=== PATIENT | male | born 1960 | race Caucasian/White ===

== ENCOUNTER 2016-07-23 10:34 | Day surgery (SDC) | payer BC ==
--- NOTE | 2016-07-17 16:14 | DIAGNOSTIC IMAGING REPORT ---
CHEST 2 VIEWS ROUTINE CLINICAL HISTORY: PRE-OP M51.26 preoperative evaluation COMPARISON STUDY: No previous studies for comparison. FINDINGS: The bones soft tissues and hemidiaphragms are normal. The cardiomediastinal silhouette is normal. The lungs are clear. The pulmonary vasculature is normal. IMPRESSION: Negative chest. Electronically signed by: Darek Jarquin M.D. 07/17/2016 4:12 PM Dictated Date/Time: 07/17/2016 4:12 PM
[2016-07-17 16:41] LABS: BASO % 0.2 %; BASO ABS # 0.02 K/uL (0-0.2); COMPLETE YES; EOS % 3.3 %; HEMATOCRIT 44.7 % (42-52); IG% 0.4 %; LYMPH % 26.1 %; LYMPH ABS # 2.55 K/uL (1.2-3.4); MEAN CELL VOLUME 88.5 fL (80-100); MEAN CORPUSCULAR HEMOGLOBIN 30.5 pg (25-34); MEAN CORPUSCULAR HGB CONC 34.5 g/dl (32-36); MEAN PLATELET VOLUME 10.1 fL (7.4-10.4); MONO % 10.5 %; NEUT % 59.5 %; PLATELET COUNT 296 K/uL (130-400); RED BLOOD COUNT 5.05 M/uL (4.7-6.1); WHITE BLOOD COUNT 9.78 K/uL (4.8-10.8)
[2016-07-17 16:46] LABS: URINE APPEARANCE CLEAR (CLEAR); URINE BILIRUBIN NEG (NEG); URINE COLOR YELLOW; URINE NITRITE NEG (NEG); URINE PH 6.5 (4.5-7.5); URINE SPECIFIC GRAVITY 1.019 (1.000-1.030); UROBILINOGEN NEG (NEG)
[2016-07-17 16:48] LABS: MANUAL MICROSCOPIC REQUIRED? NO; REVIEW REQ? NO
[2016-07-17 17:00] LABS: BLOOD UREA NITROGEN 19 mg/dl (7-18); BUN/CREATININE RATIO 20.7 (10-20); CALCIUM 9.5 mg/dl (8.5-10.1); CARBON DIOXIDE 26 mmol/L (21-32); CHLORIDE 103 mmol/L (98-107); GLUCOSE 82 mg/dl (70-99); SODIUM 140 mmol/L (136-145)
[2016-07-18 16:25] VITALS: BMI 28.0
--- NOTE | 2016-07-19 14:33 | HISTORY & PHYSICAL EXAMINATION ---
DATE OF ADMISSION: 07/23/2016 HISTORY OF PRESENT ILLNESS: The patient presents to our office with a complaint of right leg pain along the buttock, posterior thigh extending to his ankle. He reports his foot is numb. Reports these symptoms are constant. He has had multiple emergency room visits because of the above-mentioned complaints. He denies bowel or bladder dysfunction. He is taking oxycodone for pain control. He has trialed a recent pain management injection with Dr. Meade. Unfortunately, he reports very little lasting relief from this. PAST MEDICAL HISTORY: The patient's medical history is significant for none. PAST SURGICAL HISTORY: Significant for right shoulder surgery, left ring finger surgery and surgery for pyloric stenosis as an infant. ALLERGIES: None listed. MEDICATIONS: Oxycodone for pain. 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 He is . He smokes half a pack of cigarettes x30 years. Alcohol denies. FAMILY HISTORY: Significant for cardiovascular disease, diabetes and hypertension. REVIEW OF SYSTEMS: Significant for constipation, back and leg pain. PHYSICAL EXAMINATION: VITAL SIGNS: 5 foot 11, 205 pounds. HEAD, EYES, EARS, NOSE, AND THROAT: Speech appropriate. CARDIOPULMONARY: No gross abnormalities. ABDOMEN: Soft, nondistended. GENITOURINARY: Deferred. NEUROLOGIC: Cranial nerves II-XII grossly intact. MUSCULOSKELETAL: He maintains standing throughout the room. He is obviously uncomfortable. Strength is intact bilateral lower extremities. ASSESSMENT: Herniated nucleus pulposus L5-S1. PLAN: At this point in time, he has tried and failed conservative therapy. He may consider surgical intervention. We have discussed 2 options, the first being laminectomy L5-S1 on the right versus the second option lumbar decompression with instrumented fusion L5-S1. Risks, benefits, pros, cons, and alternatives were outlined in detail for both. The patient at this point in time has elected to proceed with a smaller surgery in the form of a lumbar laminectomy L5-S1 on the right. We will try and facilitate this as soon as possible.
[~2016-07-23] VITALS: Ht 180.3 cm; Wt 93.2 kg
--- NOTE | 2016-07-23 07:27 | History & Physical Bridge Note ---
H&P Re-Evaluation Bridge Note: I have examined the patient, reviewed the History & Physical and in the interval since the performance of the History & Physical I have noted the following changes of clinical significance: No changes noted
[~2016-07-23 10:34] MED LIST: ASPI81TA28 PO; CEFAZOLIN 2000 MG/60 ML D5W IV SCH; LACTATED RINGER'S 1000ML 1,000 ML IV SCH; OMEG10007 PO; OXYC1TAB3 PO
[2016-07-23 10:54] VITALS: BP 134/91; PULSE 54; TEMP 36.7; O2SAT 98; Ht 180.3 cm; Wt 93.2 kg
[2016-07-23] MEDS ORDERED: LACTATED RINGER'S 1000ML 1,000 ML IV PRN (11:50)
[2016-07-23] MEDS ORDERED: ONDANSETRON INJ 2 MG/ML 2 ML VIAL IV PRN (12:00)
[2016-07-23] MEDS ORDERED: FENTANYL CITRATE INJ 50 MCG/1 ML 2 ML VIAL IV PRN (12:00)
[2016-07-23] MEDS ORDERED: HYDROmorphone INJ 1 MG/ML SYR IV PRN ×2 (12:00→14:45)
[2016-07-23] MEDS ORDERED: MIDAZOLAM HCL 1 MG/ML 2ML VIAL ONE (13:03)
[2016-07-23] MEDS ORDERED: FENTANYL CITRATE INJ 50 MCG/1 ML 2 ML VIAL ONE ×2 (13:03→14:06)
[2016-07-23] MEDS ORDERED: BUPIVACAINE/EPINEPHRINE 0.5% MPF 1:200,000 30 ML VIAL ONE (13:28)
[2016-07-23] MEDS ORDERED: BACITRACIN 50000 UNIT VIAL ONE (13:28)
[2016-07-23] MEDS ORDERED: SODIUM CHLORIDE 0.9% PF 50 ML VIAL ONE (13:28)
[2016-07-23] MEDS ORDERED: HYDROmorphone INJ 2 MG/ML SYR/VIAL ONE (14:06)
[2016-07-23] MEDS ORDERED: LIDOCAINE HCL 2% 2 ML VIAL (20MG/ML) ONE (14:23)
[2016-07-23] MEDS ORDERED: DEXAMETHASONE SOD INJ 4 MG/ML VIAL ONE (14:23)
[2016-07-23] MEDS ORDERED: GLYCOPYRROLATE INJ 0.2 MG/ML VIAL ONE (14:23)
[2016-07-23] MEDS ORDERED: KETOROLAC TROMETHAMINE 30 MG/ML VIAL ONE ×2 (14:23→14:39)
[2016-07-23] MEDS ORDERED: NEOSTIGMINE METHYLSULFATE 1 MG/ML 10ML VIAL ONE (14:23)
[2016-07-23] MEDS ORDERED: PROPOFOL IV EMULSION 10 MG/ML 20 ML VIAL IV ONE (14:23)
[2016-07-23] MEDS ORDERED: ROCURONIUM BROMIDE 10 MG/ML 5 ML VIAL ONE (14:23)
[2016-07-23] MEDS ORDERED: EpHEDrine SULFATE 50MG/5ML SYR ONE (14:23)
[2016-07-23] MEDS ORDERED: ONDANSETRON INJ 2 MG/ML 2 ML VIAL ONE (14:23)
[2016-07-23] MEDS ORDERED: FLOSEAL HEMOSTATIC MATRIX 5ML TOP ONE (14:39)
--- NOTE | 2016-07-23 14:44 | [facility] Post Operative Brief Note ---
Immediate Operative Summary Operative Date Jul 23, 2016. Pre-Operative Diagnosis Herniated nucleus pulposus L5-S1 Post-Operative Diagnosis Herniated nucleus pulposus L5-S1 Procedure(s) Performed L5-S1 Microdiscetomy Surgeon Dr. Mireles Glue Bone Crusher Surgeon(s) Kristen Montenegro PA-C Estimated Blood Loss 20 mL Findings hnp Specimens None per Surgeon
[2016-07-23] MEDS ORDERED: OXYCODONE/ACETAMINOPHEN 5-325 TAB PO PRN (14:45)
[2016-07-23] MEDS ORDERED: ACETAMINOPHEN 325 MG TAB PO PRN (14:45)
[2016-07-23] MEDS ORDERED: OXYC1TAB3 PO (14:45)
--- NOTE | 2016-07-23 14:46 | Discharge Instructions ---
Discharge Instructions Date of Service Jul 23, 2016. Admission Reason for Admission: Lumbar Herniated Nucleus Pulposus;Pre-Op M51.26 Discharge Discharge Diagnosis / Problem: hnp Discharge Goals Goal(s): Improve function Activity Recommendations Activity Limitations: per Instructions/Follow-up section . Instructions / Follow-Up Instructions / Follow-Up ACTIVITY RECOMMENDATIONS: SELF CARE INSTRUCTIONS AFTER A LAMINECTOMY 1. No prolonged sitting (less than 30 minutes for the first 3 weeks after surgery). 2. No bending, lifting more than 5 pounds, or twisting (roll like a log when turning in bed). 3. You may shower 3 days after surgery if no drainage from wound. Thoroughly dry wound. Do not soak in the tub. 4. Please walk as much as you can for exercise. Gradually increase the distance that you walk as your endurance increases. 5. You may drive in 7-10 days if you are comfortable and no longer requiring pain medications. SPECIAL CARE INSTRUCTIONS: VERY IMPORTANT TO READ AND REVIEW A. Your surgical incision has been closed with a cosmetic suture under the skin that will dissolve in about 6 weeks. In 14 days, you can use a pair of clean scissors and cut the suture that is left outside of the skin at the ends of your incision. B. Complications are uncommon, but please contact us if you have any signs or symptoms of: 1. wound infection (fever higher than 102.5 degrees F, redness, separation of wound, drainage, or increasing pain from the incision) 2. blood clots in legs (pain, swelling, redness and warmth in legs) 3. urinary tract infection (fever higher than 102.5 degrees, burning upon urination or increased frequency of urination) 4. nerve problems (inability to walk on your toes or heels, numbness, loss of bowel or bladder control) 5. any other symptoms that concern you. C. Please call the office at if you have any concerns or questions about your operation or recovery. MANAGING PAIN AFTER SPINAL SURGERY 1. Narcotic medication is intended for short-term use and will be provided for surgical pain. Surgical pain usually lasts for a period of 4-6 weeks. Narcotic medication includes Percocet, Vicodin, Darvocet, Tylenol #3 or Lortab. 2. Longer-term pain is more appropriately treated with non-narcotic medication such as Tylenol ES. 3. Muscle spasm is not appropriately treated with narcotics. Muscle relaxers such as Soma, Flexeril or Skelaxin can be used along with Tylenol ES. 4. Remember that we all live with some "aches and pains". This is not unusual or uncommon after an injury or as we get older. 5. We will provide appropriate medication within the normal guidelines of their prescribed use. We will also be very cautious and aware of potential abuse and extended duration of patients' medication needs. 6. Please allow 2-3 days to process refills. Prescriptions will not be mailed but must be picked up at the office. FOLLOW UP VISIT: Keep your scheduled follow-up appointment. Any questions, please call the office at . Current Hospital Diet Patient's current hospital diet: Discharge Diet Recommended Diet: Regular Diet Procedures Procedures Performed: L5-S1 Microdiscetomy Pending Studies Studies pending at discharge: no Medical Emergencies . Who to Call and When: Medical Emergencies: If at any time you feel your situation is an emergency, please call 911 immediately. . Non-Emergent Contact Non-Emergency issues call your: Primary Care Provider . "Provider Documentation" section prepared by Heriberto Mireles. VTE Core Measure Inpt VTE Proph given/why not?: Faisal Viveros, SCD's
[2016-07-23] MEDS ORDERED: HYDROmorphone INJ 2 MG/ML SYR/VIAL IV PRN (15:00)
--- NOTE | 2016-07-23 15:08 | DIAGNOSTIC IMAGING REPORT ---
LUMBAR SPINE, INTRAOPERATIVE FLUOROSCOPY HISTORY: L5-S1 microdiscectomy. FLUOROSCOPY TIME: 4 seconds.. FINDINGS: Intraoperative fluoroscopy was provided for the lumbar spine. A single fluoroscopic spot image was obtained. There are surgical measurements posterior to the S1 transitional vertebra. IMPRESSION: Fluoroscopy provided for a L5-S1 microdiscectomy. Electronically signed by: Shekhar De Anda M.D. 07/23/2016 3:07 PM Dictated Date/Time: 07/23/2016 3:06 PM
--- NOTE | 2016-07-23 15:41 | Anesthesiology Progress Note ---
Anesthesia Post Op Note Date & Time Jul 23, 2016 at 15:41 Vital Signs Pain Intensity: 2 Vital Signs Past 12 Hours Date Time Temp Pulse Resp B/P Pulse Ox O2 Delivery O2 Flow Rate FiO2 07/23/16 15:30 64 16 127/82 98 Room Air 07/23/16 15:20 62 16 138/91 98 Room Air 07/23/16 15:10 69 14 126/85 100 Mask 10 07/23/16 15:00 61 12 132/69 100 Mask 10 07/23/16 14:52 36.3 71 12 120/62 100 Mask 10 07/23/16 10:54 36.7 54 16 134/91 98 Room Air Notes Mental Status: alert / awake / arousable, participated in evaluation Pt Amnestic to Procedure: Yes Nausea / Vomiting: adequately controlled Pain: adequately controlled Airway Patency, RR, SpO2: stable & adequate BP & HR: stable & adequate Hydration State: stable & adequate Anesthetic Complications: no major complications apparent
[2016-07-23 15:45] VITALS: BP 145/68; PULSE 74; TEMP 36.8; O2SAT 98
[2016-07-23 16:15] VITALS: BP 142/65; PULSE 68; TEMP 36.8; O2SAT 98
--- NOTE | 2016-07-23 17:01 | OPERATIVE REPORT ---
DATE OF OPERATION: 07/23/2016 PREOPERATIVE DIAGNOSIS: Herniated nucleus pulposus, L5-S1 right. POSTOPERATIVE DIAGNOSIS: Same. PROCEDURE PERFORMED: Lumbar laminotomy, L5-S1 on the right with excision of herniated free fragment. SURGEON: Dr. Heriberto Mireles. TMH TEACHER: Kristen Montenegro PA-C. Due to the complex nature of the procedure, the entire surgery was performed with the customer care assistant of Kristen Montenegro PA-C. The stonecutter assistant, under direct supervision, was involved in the actual performance of all aspects of the surgical procedure including hemostasis, tissue retraction and incision, instrument management, patient positioning, and wound closure. ANESTHESIA: General. DISPOSITION: The patient awakened and taken to PACU in stable condition. HISTORY OF PATIENT'S PROBLEMS: This is a 56-year-old male who presents with above-mentioned diagnosis. After failing an extensive course of nonoperative care, he elected to undergo the above-mentioned procedure. Risks, benefits, pros, cons, and alternatives were outlined in detail preoperatively. DESCRIPTION OF PROCEDURE: The patient was met with preoperatively, the case discussed and all questions were addressed. At that point, the patient was taken back to operative suite and after undergoing successful general intubation by the department of anesthesia, he was placed in prone position on Ayan table atop the Jair frame. All bony prominences were well padded and the eyes were inspected to ensure there was no external pressure placed upon them. At this point, the lumbar spine was prepped and draped in normal sterile fashion. With the assistance of fluoroscopy, we identified the L5-S1 disk space and a midline incision was created overlying this region. Sharp dissection with the assistance of Bovie cautery performed down to and exposing the interlaminar space at L5-S1 on the right. A self-retaining retractor was placed. I then performed a small laminotomy, excising the lateral portion of the ligament flavum to expose a markedly compressed traversing S1 nerve root. We explored the area thoroughly, noted a massive fragment within the axillary region of the root. The fragment was removed in its entirety, creating significant decompression. The area was explored several times to ensure all fragments were addressed and copiously irrigated and closed with 1-0 Vicryl in the fascia, 2-0 Vicryl subcutaneously, and 4-0 Monocryl for final skin closure. Steri-Strips and sterile dressing placed. The patient was awakened and taken to PACU in stable condition. I attest to the content of the Intraoperative Record and any orders documented therein. Any exceptio ns are noted below.
== END 2016-07-23 16:30 | disposition home or self-care (01) ==
LOC: C.ACU 10:34
PROVIDERS: ATTEND Orthopaedic Surgery Orthopaedic Surgery of the Spine
DX: M51.17 Intervertebral disc disorders with radiculopathy, lumbosacral region (principal); M79.606 Pain in leg, unspecified; F17.210 Nicotine dependence, cigarettes, uncomplicated